=== PATIENT | male | born 1955 | race Caucasian/White ===

== ENCOUNTER 2017-02-05 14:04 | Day surgery (SDC) | payer OTHER ==
[~2017-02-05] VITALS: Ht 185.4 cm; Wt 104.0 kg
[~2017-02-05 14:04] MED LIST: AMLO5TAB2 PO; CEFD300C37 PO; CETI1TAB6 PO; Imitrex; Lipitor; PREVICID; TAMS-11 PO; [UNRECOGNIZED DRUG - CODE] PO
[2017-02-05] MEDS ORDERED: LACTATED RINGERS 1,000 ML IV SCH (14:31)
[2017-02-05 15:04] VITALS: BP 127/86
[2017-02-05] MEDS ORDERED: ATOR10TA PO (15:04)
[2017-02-05] MEDS ORDERED: MIDAZOLAM 1 MG/ML, 2ML ONE (18:24)
[2017-02-05] MEDS ORDERED: FENTANYL PF 250 MCG/5ML ONE (18:24)
[2017-02-05] MEDS ORDERED: FENTANYL PF 100 MCG/2ML IV PRN (19:00)
[2017-02-05] MEDS ORDERED: MEPERIDINE/PF 25MG/0.5ML IVPush PRN (19:00)
[2017-02-05] MEDS ORDERED: MIDAZOLAM 1 MG/ML, 2ML IV PRN (19:00)
[2017-02-05] MEDS ORDERED: LABETALOL 5MG/ML, 20ML IV PRN (19:00)
[2017-02-05] MEDS ORDERED: METOCLOPRAMIDE 5 MG/ML, 2ML IV PRN (19:00)
[2017-02-05] MEDS ORDERED: PROMETHAZINE 25 MG/ML, 1ML IV PRN (19:00)
[2017-02-05] MEDS ORDERED: ACETAMINOPHEN 325 MG TABLET PO PRN (19:00)
[2017-02-05] MEDS ORDERED: hydrALAzine 20 MG/ML, 1ML IV PRN (19:00)
[2017-02-05] MEDS ORDERED: OXYcodone 5 MG/5 ML ORAL.SOL UDC PO PRN ×2 (19:00→19:30)
[2017-02-05] MEDS ORDERED: HYDROmorphone 1 MG/ML, 1ML IV PRN (19:00)
[2017-02-05] MEDS ORDERED: ONDANSETRON 2MG/ML, 2ML IVPush PRN (19:00)
[2017-02-05] MEDS ORDERED: KETOROLAC 30 MG/1 ML IV PRN (19:30)
[2017-02-05] MEDS ORDERED: PROPOFOL 10 MG/ML, 20ML ONE (19:32)
[2017-02-05] MEDS ORDERED: SUCCINYLCHOLINE 20 MG/ML, 10ML ONE (19:32)
[2017-02-05] MEDS ORDERED: ROCURONIUM 10 MG/ML ONE (19:32)
[2017-02-05] MEDS ORDERED: DEXAMETHASONE 4 MG/ML, 1ML ONE (19:32)
[2017-02-05] MEDS ORDERED: ONDANSETRON 2MG/ML, 2ML ONE (19:32)
[2017-02-05] MEDS ORDERED: OXYcodone 5 MG/5 ML ORAL.SOL UDC ONE (19:44)
[2017-02-05] MEDS ORDERED: KETOROLAC 30 MG/1 ML ONE (20:00)
[2017-02-14 15:06] LABS: CA OXALATE DIHYDRATE 55 % (.); CA OXALATE MONOHYDRATE 35 % (.); URINARY CALCULI COLOR Tan (.); URINARY CALCULI WEIGHT 47.3 mg (.)
== END 2017-02-05 21:05 | disposition home or self-care (01) ==
LOC: OR 14:04
PROVIDERS: ATTEND Urology
DX: N20.2 Calculus of kidney with calculus of ureter (principal); I10 Essential (primary) hypertension; E78.00 Pure hypercholesterolemia, unspecified; G47.33 Obstructive sleep apnea (adult) (pediatric); K21.9 Gastro-esophageal reflux disease without esophagitis; N40.1 Benign prostatic hyperplasia with lower urinary tract symptoms; N13.8 Other obstructive and reflux uropathy; Z87.891 Personal history of nicotine dependence; Z72.89 Other problems related to lifestyle; Z87.440 Personal history of urinary (tract) infections; Z82.49 Family history of ischemic heart disease and other diseases of the circulatory system; Z80.52 Family history of malignant neoplasm of bladder; Z88.6 Allergy status to analgesic agent
CPT/HCPCS: 52356; 76000; 82360; 88300; 93005; C1769; C2617; J0330; J1100; J1885; J2250; J2405; J2704; J3010; J7120

== ENCOUNTER → 2018-05-03 | Outpatient (CLI) | payer OTHER ==
[~2018-05-03] MED LIST changes: +ATOR10TA PO; +ATOR20TA9 PO; +CA C1TAB39 PO; +CHOL200024 PO; +ESOM20CA57 PO; +MULT-717 PO; +OMEG1CAP23 PO; +SAW450CA7 PO; +SUMA100T4 PO; +UBID100C24 PO; +VITA200C7 PO
[2018-05-03 11:26] LABS: MICROSCOPIC NOT IND
== END | disposition home or self-care (01) ==
LOC: STAR 10:05
PROVIDERS: ATTEND Urology
DX: Z01.818 Encounter for other preprocedural examination (principal); N40.1 Benign prostatic hyperplasia with lower urinary tract symptoms
CPT/HCPCS: 81003; 87086; 93005

== ENCOUNTER 2018-05-13 09:28 | Day surgery (SDC) | payer OTHER ==
[2018-05-03 10:35] VITALS: BP 137/92
[~2018-05-13] VITALS: Ht 185.4 cm; Wt 100.3 kg
[2018-05-13] MEDS ORDERED: LACTATED RINGERS 1,000 ML IV SCH (09:54)
[2018-05-13 09:57] VITALS: BP 137/92
[2018-05-13] MEDS ORDERED: FENTANYL PF 250 MCG/5ML ONE (09:59)
[2018-05-13] MEDS ORDERED: LIDOCAINE-MPF 1%, 2ML INFIL ONE (10:00)
[2018-05-13] MEDS ORDERED: MIDAZOLAM 1 MG/ML, 2ML ONE (10:19)
[2018-05-13] MEDS ORDERED: CEFAZOLIN 1,000 MG ONE (11:50)
[2018-05-13] MEDS ORDERED: PROPOFOL 10 MG/ML, 20ML ONE (11:50)
[2018-05-13] MEDS ORDERED: DEXAMETHASONE 4 MG/ML, 1ML ONE (11:50)
[2018-05-13] MEDS ORDERED: ONDANSETRON 2MG/ML, 2ML ONE (11:50)
[2018-05-13] MEDS ORDERED: CIPROFLOXACIN/PMX 400MG/200ML 200 ML ONE ×2 (11:51)
[2018-05-13] MEDS ORDERED: ONDANSETRON 2MG/ML, 2ML IV PRN (12:30)
[2018-05-13] MEDS ORDERED: ACETAMINOPHEN 325 MG TABLET PO PRN (12:30)
[2018-05-13] MEDS ORDERED: PROMETHAZINE 12.5 MG SUPP PR PRN (12:30)
[2018-05-13] MEDS ORDERED: PROMETHAZINE 25 MG SUPP PR PRN (12:30)
[2018-05-13] MEDS ORDERED: OXYcodone 5 MG/5 ML ORAL.SOL UDC PO PRN ×2 (12:30)
[2018-05-13] MEDS ORDERED: PROMETHAZINE 25 MG/ML, 1ML IV PRN (12:30)
[2018-05-13] MEDS ORDERED: MORPHINE SULFATE 4 MG/ML, 1ML IVPush PRN (12:30)
[2018-05-13] MEDS ORDERED: ONDANSETRON ODT 8 MG PO PRN (12:30)
[2018-05-13] MEDS ORDERED: OXYcodone 5 MG/5 ML ORAL.SOL UDC ONE (12:40)
[2018-05-13] MEDS ORDERED: FENTANYL PF 100 MCG/2ML ONE (12:41)
[2018-05-13] MEDS: FENTANYL PF 100 MCG/2ML IV PRN ×2 (12:45→12:55)
[2018-05-13] MEDS ORDERED: OPIUM/BELLADONNA SUPP.RECT 16.2-60 MG PR PRN (13:30)
[2018-05-13] MEDS ORDERED: OPIUM/BELLADONNA SUPP.RECT 16.2-60 MG ONE (13:52)
[2018-05-13] MEDS ORDERED: EPHEDRINE 50 MG/ML, 1ML ONE (15:31)
== END 2018-05-13 16:40 | disposition home or self-care (01) ==
LOC: OUT 09:28
PROVIDERS: ATTEND Urology
DX: N40.0 Benign prostatic hyperplasia without lower urinary tract symptoms (principal); E78.00 Pure hypercholesterolemia, unspecified; I10 Essential (primary) hypertension; Z88.1 Allergy status to other antibiotic agents; Z88.8 Allergy status to other drugs, medicaments and biological substances; Z87.891 Personal history of nicotine dependence; Z79.899 Other long term (current) drug therapy; Z98.890 Other specified postprocedural states
CPT/HCPCS: 52648; J0690; J0744; J1100; J2250; J2405; J2704; J3010; J7120

== ENCOUNTER 2019-02-10 08:39 | Outpatient (CLI) | payer OTHER ==
[~2019-02-10 08:39] MED LIST changes: +AMLO-150 PO; -AMLO5TAB2 PO; +ATOR20TA37 PO; -ATOR20TA9 PO
== END 2019-02-10 23:59 | disposition home or self-care (01) ==
LOC: RAD 08:39
PROVIDERS: ATTEND Urology
DX: I70.0 Atherosclerosis of aorta (principal); Z87.442 Personal history of urinary calculi
CPT/HCPCS: 74018